=== PATIENT | male | born 1985 | race Caucasian/White ===

== ENCOUNTER 2024-01-02 19:46 | Emergency (ER) | payer SELFPAY ==
[~2024-01-02] VITALS: Ht 170.2 cm; Wt 61.2 kg
[2024-01-02] MEDS ORDERED: SERT25 PO (20:51)
== END 2024-01-02 20:53 | disposition home or self-care (01) ==
LOC: ER 19:46
DX: F32.A Depression, unspecified (principal)
CPT/HCPCS: 99282